=== PATIENT | female | born 1975 | race Caucasian/White ===

== ENCOUNTER 2018-11-12 15:14 | Emergency (ER) | payer SELFPAY ==
[~2018-11-12] VITALS: Ht 162.6 cm; Wt 80.0 kg
[2018-11-12 16:10] VITALS: BP 140/90
[2018-11-12] MEDS ORDERED: CLEOCIN300 MG PO (16:17)
== END 2018-11-12 16:10 | disposition home or self-care (01) | DRG 544 ==
LOC: ED 15:14 → EDSEX 15:32 → ED 16:10
DX: M84.68XA Pathological fracture in other disease, other site, initial encounter for fracture (principal); K02.9 Dental caries, unspecified; I10 Essential (primary) hypertension

== ENCOUNTER 2018-12-14 18:38 | Emergency (ER) | payer SELFPAY ==
[~2018-12-14] VITALS: Ht 162.6 cm; Wt 56.0 kg
[~2018-12-14 18:38] MED LIST: CLEOCIN300 MG PO
[2018-12-14 18:52] VITALS: BP 147/112
== END 2018-12-14 19:48 | disposition left against medical advice (07) | DRG 951 ==
LOC: ED 18:38 → LWOBS 19:48 → ED 19:48
DX: Z91.19 Patient's noncompliance with other medical treatment and regimen (principal)

== ENCOUNTER 2019-01-07 13:09 | Emergency (ER) | payer SELFPAY ==
[~2019-01-07] VITALS: Ht 162.6 cm; Wt 56.4 kg
[2019-01-07] MEDS ORDERED: LISINOPRIL2.5 MG PO (13:25)
[2019-01-07 15:07] VITALS: BP 124/97
== END 2019-01-07 15:08 | disposition home or self-care (01) | DRG 552 ==
LOC: ED 13:09
DX: M54.5 Low back pain (principal); M54.6 Pain in thoracic spine; S22.069A Unspecified fracture of T7-T8 vertebra, initial encounter for closed fracture; Y04.8XXA Assault by other bodily force, initial encounter; Y92.009 Unspecified place in unspecified non-institutional (private) residence as the place of occurrence of the external cause; V89.2XXA Person injured in unspecified motor-vehicle accident, traffic, initial encounter; Y92.9 Unspecified place or not applicable